=== PATIENT | male | born 1960 ===

== ENCOUNTER 2024-06-29 12:53 | Outpatient (CLI) | payer MEDICAID, SELFPAY | END 2024-06-29 12:54 | disposition home or self-care (01) | LOC: LBO 12:53 | PROVIDERS: PCP Nurse Practitioner Gerontology; Visit Provider Nurse Practitioner Gerontology | DX: R97.20 Elevated prostate specific antigen [PSA] (principal); N13.8 Other obstructive and reflux uropathy; R39.9 Unspecified symptoms and signs involving the genitourinary system; N40.1 Benign prostatic hyperplasia with lower urinary tract symptoms | CPT/HCPCS: 36415; 84153 ==